=== PATIENT | male | born 1960 ===

== ENCOUNTER 2022-02-19 12:46 | Observation (INO) ==
[2022-02-19 15:06] LABS: Basophils % 0.4 % (0.0-0.8); Eosinophils # 0.1 10*3/uL (0.0-0.87); Eosinophils % 0.7 % (0.00-10.9); Hematocrit 35.1 VOL% (42.0-52.0); Hemoglobin 12.3 GM/DL (14.0-18.0); Immature Granulocytes % 0.6 %; Immature Granulocytes Absolute 0.07 #; Lymphocytes # 1.7 10*3/uL (1.4-4.0); Mean Corpuscular Volume 94.6 FL (87-102); Monocytes # 1.1 10*3/uL (0.11-0.8); Monocytes % 9.9 % (1.7-12.7); Neutrophils % 72.4 % (38.7-73.9); Platelet Count 227 T/CUMM (130-400); Red Blood Count 3.71 MC/CUMM (3.8-5.5); Red Cell Distribution Width 11.8 % (9.3-17.3); White Blood Count 10.8 T/CUMM (4-12)
[2022-02-19] MEDS ORDERED: ACETAMINOPHEN 325 MG TABLET PO PRN (15:27)
[2022-02-19] MEDS ORDERED: ONDANSETRON 4 MG/2 ML VIAL IV PRN (15:27)
[2022-02-19] MEDS ORDERED: HYDROmorphone 1 MG/1 ML SYRINGE IV PRN (15:27)
[2022-02-19] MEDS ORDERED: BISACODYL 5 MG TABLET PO PRN (15:27)
[2022-02-19 15:35] LABS: Albumin 3.3 G/DL (3.4-5.0); Bilirubin,Total 0.6 MG/DL (0.20-1.00); Calcium 8.3 MG/DL (8.5-10.1); Osmolality,Calculated 282.5 MOS/KG (273-304); Potassium 4.2 MMOL/L (3.5-5.1); Total Protein 6.6 G/DL (6.4-8.2)
[2022-02-19] MEDS ORDERED: GLUCAGON 1 MG VIAL IM PRN (15:38)
[2022-02-19] MEDS ORDERED: DEXTROSE 10% 250 ML BAG IV PRN (15:41)
[2022-02-19] MEDS: LACTATED RINGERS 1,000 ML IV SCH (15:48)
[2022-02-19] MEDS: INSULIN LISPRO 100 UNIT/ML SUBCUT SCH ×2 (16:30→21:24)
[2022-02-20] MEDS: LACTATED RINGERS 1,000 ML IV SCH ×3 (01:00→16:50)
[2022-02-20 04:41] LABS: Basophils # 0.1 10*3/uL (0.0-0.2); Basophils % 0.6 % (0.0-0.8); Eosinophils # 0.2 10*3/uL (0.0-0.87); Eosinophils % 1.9 % (0.00-10.9); Hematocrit 33.2 VOL% (42.0-52.0); Hemoglobin 11.8 GM/DL (14.0-18.0); Immature Granulocytes % 0.6 %; Immature Granulocytes Absolute 0.05 #; Lymphocytes # 2.3 10*3/uL (1.4-4.0); Lymphocytes % 26.9 % (21.2-54.2); Mean Corpuscular HGB Conc 35.5 GM/DL (32-36); Mean Corpuscular Volume 94.1 FL (87-102); Mean Platelet Volume 9.9 FL (9.6-12.0); Monocytes # 0.8 10*3/uL (0.11-0.8); Monocytes % 9.8 % (1.7-12.7); Neutrophils % 60.2 % (38.7-73.9); Platelet Count 230 T/CUMM (130-400); Red Blood Count 3.53 MC/CUMM (3.8-5.5); Red Cell Distribution Width 11.6 % (9.3-17.3); White Blood Count 8.5 T/CUMM (4-12)
[2022-02-20 05:00] LABS: Albumin 2.7 G/DL (3.4-5.0); Bilirubin,Total 0.6 MG/DL (0.20-1.00); Calcium 8.4 MG/DL (8.5-10.1); Osmolality,Calculated 282.4 MOS/KG (273-304); Potassium 4.2 MMOL/L (3.5-5.1)
[2022-02-20] MEDS ORDERED: INDOCYANINE GREEN 25 MG VIAL IV ONE (05:17)
[2022-02-20] MEDS ORDERED: fentaNYL 250 MCG/5 ML VIAL IV ONE (06:30)
[2022-02-20] MEDS ORDERED: propofoL 200 MG/20 ML VIAL IV ONE (09:10)
[2022-02-20] MEDS ORDERED: SEVOFLURANE 1 UNIT/15 MINUTE INH ONE ×2 (09:10→09:15)
[2022-02-20] MEDS ORDERED: ONDANSETRON 4 MG/2 ML VIAL ONE (09:10)
[2022-02-20] MEDS ORDERED: LIDOCAINE 2% 5 ML VIAL ONE (09:10)
[2022-02-20] MEDS ORDERED: ROCURONIUM 50 MG/5 ML VIAL IV ONE (09:10)
[2022-02-20] MEDS ORDERED: MIDAZOLAM 2 MG/2 ML VIAL ONE (09:10)
[2022-02-20] MEDS ORDERED: ACETAMINOPHEN INJ 1,000 MG/100 ML VIAL IV ONE (09:15)
[2022-02-20] MEDS ORDERED: BUPIVACAINE MPF 0.25% 10 ML VIAL ONE (09:27)
[2022-02-20] MEDS ORDERED: LIDOCAINE 1%/EPI INJ 20 ML VIAL ONE (09:27)
[2022-02-20] MEDS ORDERED: CLINDAMYCIN INJ 900 MG/50 ML PREMIX IV ONE (09:52)
[2022-02-20] MEDS ORDERED: ePHEDrine 50 MG/ML VIAL ONE (10:01)
[2022-02-20] MEDS ORDERED: GLYCOPYRROLATE 0.4 MG/2 ML VIAL ONE (10:55)
[2022-02-20] MEDS ORDERED: NEOSTIGMINE 10 MG/10 ML VIAL ONE (10:55)
[2022-02-20] MEDS ORDERED: GLUCAGON 1 MG VIAL IM PRN (11:59)
[2022-02-20] MEDS ORDERED: DEXTROSE 10% 250 ML BAG IV PRN (12:17)
[2022-02-20 12:38] LABS: Hematocrit 34.6 VOL% (42.0-52.0); Hemoglobin 11.8 GM/DL (14.0-18.0)
[2022-02-20] MEDS: INSULIN LISPRO 100 UNIT/ML SUBCUT SCH ×3 (13:09→20:39)
[2022-02-20] MEDS: lisinopriL 20 MG TABLET PO SCH (13:21)
[2022-02-20] MEDS: TAMSULOSIN 0.4 MG CAPSULE PO SCH (13:21)
[2022-02-20] MEDS: PANTOPRAZOLE 40 MG TABLET PO SCH (13:21)
[2022-02-20] MEDS: ASPIRIN EC 81 MG TABLET PO SCH (13:21)
[2022-02-21] MEDS: LACTATED RINGERS 1,000 ML IV SCH ×2 (00:16→10:27)
[2022-02-21 04:15] LABS: Basophils % 0.2 % (0.0-0.8); Eosinophils % 0.2 % (0.00-10.9); Hematocrit 31.6 VOL% (42.0-52.0); Hemoglobin 11.3 GM/DL (14.0-18.0); Immature Granulocytes % 0.6 %; Immature Granulocytes Absolute 0.08 #; Lymphocytes # 1.7 10*3/uL (1.4-4.0); Mean Corpuscular HGB Conc 35.8 GM/DL (32-36); Mean Corpuscular Volume 94.6 FL (87-102); Mean Platelet Volume 9.6 FL (9.6-12.0); Monocytes # 1.3 10*3/uL (0.11-0.8); Monocytes % 9.9 % (1.7-12.7); Neutrophils % 76.1 % (38.7-73.9); Platelet Count 212 T/CUMM (130-400); Red Blood Count 3.34 MC/CUMM (3.8-5.5); Red Cell Distribution Width 11.5 % (9.3-17.3); White Blood Count 12.9 T/CUMM (4-12)
[2022-02-21 04:38] LABS: Osmolality,Calculated 276.8 MOS/KG (273-304); Potassium 3.9 MMOL/L (3.5-5.1)
[2022-02-21] MEDS: INSULIN LISPRO 100 UNIT/ML SUBCUT SCH (07:06)
[2022-02-21 07:34] VITALS: BP 116/56
[2022-02-21] MEDS: PANTOPRAZOLE 40 MG TABLET PO SCH (09:27)
[2022-02-21] MEDS: ASPIRIN EC 81 MG TABLET PO SCH (09:27)
[2022-02-21] MEDS: TAMSULOSIN 0.4 MG CAPSULE PO SCH (09:27)
[2022-02-21] MEDS: lisinopriL 20 MG TABLET PO SCH (09:27)
[2022-02-21] MEDS ORDERED: CLINDAMYCIN 300 MG CAPSULE PO SCH (14:00)
== END 2022-02-21 11:29 | disposition home or self-care (01) ==
LOC: EDBD → EDUNIT# → N.ED 12:46 → N.EDINP 12:46 → N.3E 19:01
PROVIDERS: ADMIT Surgery; ATTEND Surgery